=== PATIENT | male | born 1975 | race Caucasian/White ===

== ENCOUNTER → 2017-03-28 | Outpatient (CLI) | payer OTHER ==
--- NOTE | 2017-03-29 08:52 | EST ---
DATE OF SERVICE: 03/28/2017 AGE: 41Y SEX: M HT: 67 WT: 203 lbs. Protocol Kaleb: X Other: Stage: III Dur. of Exercise: 10 minutes *Heart Rate Blood Pressure *Rest: 77 Rest: 104/73 * *Max. Achieved: 154 Maximum BP: 136/61 85% PMHR: 154 100% PMHR: 181 *METS: 11.5 INDICATION OF THE STUDY: Chest discomfort. MEDICATIONS: STRESS DATA: Pretesting physical examination showed heart rate of 77, pressure is 104/73 mmHg. Baseline EKG showed sinus mechanism. The patient exercised on the treadmill according to Kaleb treadmill for a total 10 minutes and achieved 11.5 METs. Max heart rate was 154, which is about 85% of maximum predicted heart rate. Maximum blood pressure was 136/61 mmHg. Clinically, the patient did not have any symptoms of chest pain or discomfort during the testing or in the recovery time. The EKG did not show any significant ST or T wave abnormalities consistent with ischemia. CONCLUSION: 1. Excellent exercise capacity. 2. Normal EKG in response to exercise. 3. Normal exercise treadmill stress test for this gentleman.
== END | disposition home or self-care (01) ==
LOC: RADNMMAIN 11:01
PROVIDERS: ATTEND Internal Medicine
DX: R07.9 Chest pain, unspecified (principal); I10 Essential (primary) hypertension
CPT/HCPCS: 93017

== ENCOUNTER 2020-08-26 15:38 | Emergency (ER) | payer BC, OTHER ==
[2020-08-26 15:45] VITALS: BP 127/81; PULSE 82; TEMP 98.1
[2020-08-26 17:25] VITALS: RESP 16
[2020-08-26 17:37] LABS: Appearance,Urine Clear (Clear); Bilirubin,Urine Negative (Negative); Blood,Urine Trace (Negative); Color,Urine Light Yellow; Glucose,Urine (UA) Negative (Negative); Ketones,Urine Negative (Negative); Leukocyte Esterase,Urine Negative (Negative); Nitrite,Urine Negative (Negative); PH, Urine 6.5 (5.0-8.0); Protein,Urine Negative (Negative); RBC,Urine 1 /hpf (0-5); Specific Gravity,Urine 1.015 (1.001-1.035); Urobilinogen,Urine <2.0 mg/dL (<2.0); WBC,Urine 1 /hpf (0-5)
--- NOTE | 2020-08-26 18:17 | CT ---
EXAMINATION TYPE: CT abdomen pelvis wo con DATE OF EXAM: 08/26/2020 COMPARISON: None HISTORY: Rt side flank/back pain. CT DLP: 1302.4 mGycm Automated exposure control for dose reduction was used. Lung bases are clear. There is no pleural effusion. Heart size is normal. There is no pericardial eff usion. Liver spleen stomach pancreas gallbladder appear normal. Bile ducts are not dilated. There is no adre nal mass. There is 4 mm calculus lower pole left kidney. There is 2 mm calculus interpolar right kidn ey. There is no hydronephrosis. Ureters are not dilated. There is no retroperitoneal adenopathy. Appe ndix is posterior and appears normal. Bladder distends smoothly. There is no inguinal hernia. There i s no free fluid in the pelvis. There is no mesenteric edema. There is no ascites or free air. There is no bowel obstruction. Lumbar vertebra have normal alignment. Disc spaces are fairly normal. Posterior elements are intact. Bony pelvis is intact. There is some retained fecal material in the rectum that measures 6.5 cm. IMPRESSION: Nonobstructing small renal calculi. Normal appendix. Mild constipation.
--- NOTE | 2020-08-26 18:18 | CT ---
EXAMINATION TYPE: CT lumbar spine wo con DATE OF EXAM: 08/26/2020 COMPARISON: None HISTORY: Rt side flank/back pain. CT DLP: 1302.4 mGycm Automated exposure control for dose reduction was used. Images were obtained from the level of T12-S2 vertebra without contrast. Lumbar vertebra have normal alignment. Disc spaces are fairly normal. There is no compression fractur e. There is anterior osteophyte formation at T12-L1. There is mild anterior spurring at L2-3 and L3-4 . Posterior elements are intact. There is no compression fracture. I see no focal bone destruction. T here is no lumbar paraspinal mass. There is no evidence of lumbar spinal stenosis. Sacroiliac joints are intact. IMPRESSION: Mild degenerative hypertrophic changes. No fractures. No significant disc space narrowing. No spinal stenosis.
--- NOTE | 2020-08-26 18:19 | XR ---
EXAMINATION TYPE: XR chest 1V portable DATE OF EXAM: 08/26/2020 COMPARISON: NONE HISTORY: Short of breath TECHNIQUE: FINDINGS: Heart is normal. Lungs are clear of infiltrate. There is no heart failure. There are no hil ar masses. There is no sign of pleural effusion. IMPRESSION: No active cardiopulmonary disease.
[2020-08-26] MEDS ORDERED: LIDOCAINE 5% PATCH TOPICAL STA (18:44)
--- NOTE | 2020-08-26 18:47 | ED ---
SOB HPI - General Chief Complaint: Shortness of Breath Stated Complaint: Back Pain Time Seen by Provider: 08/26/20 15:45 Source: patient Mode of arrival: ambulatory Limitations: no limitations - History of Present Illness Initial Comments: Patient is a 45-year-old male presents emergency room with reported right-sided flank pain and some shortness of breath. The patient states that he dissipating and some heavy physical activity a couple weeks ago when he heard a pop in his right side. He states that he does have chronic back pain however the strenuous lifting made it worse. Patient reports that he has also relaxers and Motrin at home however does not like to take medications. Patient denies any saddle anesthesia. No bowel or bladder incontinence. No history of drug use. No fevers or chills. Denies any weakness in his lower extremities. She also reports to inability to take a deep breath. Denies any history of underlying lung issues. States that he is concerned that he may have Covid as he did have a positive exposure is requesting Covid testing. Denies cough. No chest pain. No other alleviating, precipitating modifying factors - Related Data Home Medications Medication Instructions Recorded Confirmed Ibuprofen [Motrin] 800 mg PO BID PRN 08/26/20 08/26/20 predniSONE See Taper PO DAILY 08/26/20 08/26/20 Previous Rx's Medication Instructions Recorded Lidocaine 5% Patch [Lidoderm] 1 patch TOPICAL DAILY #24 patch 08/26/20 Allergies Allergy/AdvReac Type Severity Reaction Status Date / Time No Known Allergies Allergy Verified 08/26/20 18:31 Review of Systems ROS Statement: Those systems with pertinent positive or pertinent negative responses have been documented in the HPI. ROS Other: All systems not noted in ROS Statement are negative. Past Medical History Past Medical History: No Reported History History of Any Multi-Drug Resistant Organisms: None Reported Past Surgical History: No Surgical Hx Reported Smoking Status: Smoker, current status unknown, Light tobacco smoker Past Drug Use History: None Reported General Exam Limitations: no limitations General appearance: alert, in no apparent distress Head exam: Present: atraumatic, normocephalic, normal inspection Eye exam: Present: normal appearance, PERRL, EOMI. Absent: scleral icterus, conjunctival injection, periorbital swelling ENT exam: Present: normal exam, mucous membranes moist Neck exam: Present: normal inspection. Absent: tenderness, meningismus, lymphadenopathy Respiratory exam: Present: normal lung sounds bilaterally. Absent: respiratory distress, wheezes, rales, rhonchi, stridor Cardiovascular Exam: Present: regular rate, normal rhythm, normal heart sounds. Absent: systolic murmur, diastolic murmur, rubs, gallop, clicks GI/Abdominal exam: Present: soft, normal bowel sounds. Absent: distended, tenderness, guarding, rebound, rigid Extremities exam: Present: normal inspection, full ROM, normal capillary refill. Absent: tenderness, pedal edema, joint swelling, calf tenderness Back exam: Present: normal inspection Neurological exam: Present: alert, oriented X3, CN II-XII intact Psychiatric exam: Present: normal affect, normal mood Skin exam: Present: warm, dry, intact, normal color. Absent: rash Course Vital Signs 08/26/20 08/26/20 15:42 17:24 Temperature 98.1 F Pulse Rate 82 Respiratory 18 16 Rate Blood Pressure 127/81 O2 Sat by Pulse 99 Oximetry Medical Decision Making - Medical Decision Making Upon arrival patient is placed into room 25. A thorough history and physical exam was performed. Patient is sent for a CT of his abdomen and pelvis as well as lumbar spine because of his reported right flank pain. Chest x-rays performed. CT does demonstrate nonobstructing small renal calculi. Urinalysis does show trace blood however no red blood cells. Chest x-ray demonstrates no acute intrathoracic process. Patient does not demonstrate any signs of respiratory distress. We did swab him for Covid and inform him that we will have his results within 36 hours. Patient is informed of the degenerative changes seen on his CT. I did discuss treatment options however patient refuses muscle relaxers, pain medications, anti-inflammatories. He does agree to a Lidoderm patch. Did provide him with one and the patient will be given a written prescription. He is to follow up with his primary care doctor. Quarantine until he has results of his Covid. Return to the emergency department for any new or worsening symptoms. Patient was discharged home in stable condition - Lab Data Lab Results 08/26/20 Range/Units 17:22 Urine Color Light Yellow Urine Appearance Clear (Clear) Urine pH 6.5 (5.0-8.0) Ur Specific [place] 1.015 (1.001-1.035) Urine Protein Negative (Negative) Urine Glucose (UA) Negative (Negative) Urine Ketones Negative (Negative) Urine Blood Trace H (Negative) Urine Nitrite Negative (Negative) Urine Bilirubin Negative (Negative) Urine Urobilinogen <2.0 (<2.0) mg/dL Ur Leukocyte Esterase Negative (Negative) Urine RBC 1 (0-5) /hpf Urine WBC 1 (0-5) /hpf Disposition Clinical Impression: Right flank pain, Nephrolithiasis, Lumbar radiculopathy Disposition: HOME SELF-CARE Condition: Stable Instructions (If sedation given, give patient instructions): Back Pain (ED) Additional Instructions: please follow-up with your primary care doctor. Return to the emergency room for any new or worsening symptoms Prescriptions: Lidocaine 5% Patch [Lidoderm] 1 patch TOPICAL DAILY #24 patch Is patient prescribed a controlled substance at d/c from ED?: No Referrals: Chris Thurman MD [Primary Care Provider] - 1-2 days Time of Disposition: 18:47
== END 2020-08-26 19:00 | disposition home or self-care (01) ==
LOC: EC 15:38
DX: N20.0 Calculus of kidney (principal); M54.16 Radiculopathy, lumbar region; R06.02 Shortness of breath; F17.200 Nicotine dependence, unspecified, uncomplicated; Z20.828 Contact with and (suspected) exposure to other viral communicable diseases
CPT/HCPCS: 71045; 72131; 74176; 81001; 99285

== ENCOUNTER → 2020-08-31 | Outpatient (CLI) | payer BC | END | disposition home or self-care (01) | LOC: LABWHC1 14:28 | PROVIDERS: ATTEND Emergency Medicine | DX: R05 Cough (principal) | CPT/HCPCS: U0003; C9803 ==

== ENCOUNTER 2020-09-19 19:09 | Emergency (ER) | payer BC ==
[2020-09-19 19:16] VITALS: BP 150/90; PULSE 92; RESP 18; TEMP 97.9
--- NOTE | 2020-09-19 19:38 | ED ---
General Adult HPI - General Chief complaint: Extremity Injury, Lower Stated complaint: fall, rt leg injury Source: patient, RN notes reviewed, old records reviewed Mode of arrival: ambulatory Limitations: no limitations - History of Present Illness Initial comments: 45-year-old male presents to the emergency department today with complaints of right ankle pain. Patient reports he tripped over 3 stairs and rolled it. Patient states he has no other injuries at this time no back pain or abdominal pain or head injury. He is that he sprained it. - Related Data Home Medications Medication Instructions Recorded Confirmed Ibuprofen [Motrin] 800 mg PO BID PRN 08/26/20 08/26/20 predniSONE See Taper PO DAILY 08/26/20 08/26/20 Previous Rx's Medication Instructions Recorded Lidocaine 5% Patch [Lidoderm] 1 patch TOPICAL DAILY #24 patch 08/26/20 Ibuprofen [Motrin] 800 mg PO Q8H #20 tab 09/19/20 Allergies Allergy/AdvReac Type Severity Reaction Status Date / Time No Known Allergies Allergy Verified 09/19/20 19:16 Review of Systems ROS Statement: Those systems with pertinent positive or pertinent negative responses have been documented in the HPI. ROS Other: All systems not noted in ROS Statement are negative. Past Medical History Past Medical History: No Reported History History of Any Multi-Drug Resistant Organisms: None Reported Past Surgical History: No Surgical Hx Reported Smoking Status: Current some day smoker, Light tobacco smoker Past Drug Use History: None Reported General Exam - General Exam Comments Initial Comments: 45-year-old male. Limitations: no limitations General appearance: alert, in no apparent distress Head exam: Present: atraumatic, normocephalic, normal inspection Eye exam: Present: normal appearance, PERRL, EOMI. Absent: scleral icterus, conjunctival injection, periorbital swelling ENT exam: Present: normal exam, mucous membranes moist Neck exam: Present: normal inspection. Absent: tenderness, meningismus, lymphadenopathy Respiratory exam: Present: normal lung sounds bilaterally. Absent: respiratory distress, wheezes, rales, rhonchi, stridor Cardiovascular Exam: Present: regular rate, normal rhythm, normal heart sounds. Absent: systolic murmur, diastolic murmur, rubs, gallop, clicks GI/Abdominal exam: Present: soft, normal bowel sounds. Absent: distended, tenderness, guarding, rebound, rigid Extremities exam: Present: normal inspection, full ROM, normal capillary refill. Absent: tenderness, pedal edema, joint swelling, calf tenderness Right Knee exam: Present: normal inspection, full ROM Lower Leg exam: Present: normal inspection, full ROM Ankle exam: Present: normal inspection, full ROM Foot/Toe exam: Present: full ROM, tenderness (over lateral malleolus), swelling. Absent: normal inspection Neurovascular tendon exam: Present: no vascular compromise Back exam: Present: normal inspection Course Vital Signs 09/19/20 19:14 Temperature 97.9 F Pulse Rate 92 Respiratory 18 Rate Blood Pressure 150/90 O2 Sat by Pulse 99 Oximetry Medical Decision Making - Medical Decision Making Patient is a pleasant 45-year-old male presents today with right ankle pain and sprain after falling down the stairs. Denies any other injury. Patient does have swelling over the lateral malleolus. At this time Patient has normal pulses normal sensation distally. Patient's x-rays reviewed and negative for acute process no signs of fracture. Patient was given an ankle stirrup splint and Eligio wrap. Advised to rest ice and elevate ankle as much as possible. Discussing him with crutches to keep weight off of it for the next week. Discussed return parameters and [place] follow-up if symptoms continue persist after a week of rest ice and elevate. - Radiology Data Radiology results: report reviewed Review ankle shows no fractures the Patient. Visualized osseous structures are nontender, alignment. Joint is preserved. Ankle more T's is congruent. No fracture dislocation of the right foot anatomic alignment. No acute osseous normality noted on foot or ankle x-ray. Disposition Clinical Impression: Right ankle sprain Disposition: HOME SELF-CARE Instructions (If sedation given, give patient instructions): Ankle Sprain (ED) Additional Instructions: Patient is advised to rest, ice, elevate ankle. Patient can wear the Eligio wrap for compression. Patient can follow-up with orthopedic if symptoms don't improve after the week of staying off of it is much as possible. Patient can ambulate with crutches. Patient should return to the emergency department if any alarming signs or symptoms occur. Prescriptions: Ibuprofen [Motrin] 800 mg PO Q8H #20 tab Is patient prescribed a controlled substance at d/c from ED?: No Referrals: Chris Thurman MD [Primary Care Provider] - 1-2 days Jeni Lyon DO [Doctor of Osteopathic Medicine] - 1-2 days Time of Disposition: 20:00
--- NOTE | 2020-09-19 19:58 | XR ---
Result: Clinical History: Pain status post fall. Comparison: None available. Technique: AP, lateral and oblique views of the right ankle. AP, lateral and oblique views of the right foot. Findings: The bone mineralization is age-appropriate. Right ankle: There is no acute fracture or dislocation. The visualized osseous structures are in marvin tomic alignment. The joint spaces are preserved. The talar dome is intact and the ankle mortise is c ongruent. Right foot: There is no acute fracture or dislocation. The visualized osseous structures are in moshe omic alignment. The joint spaces are preserved. IMPRESSION: No acute osseous abnormality.
== END 2020-09-19 20:30 | disposition home or self-care (01) ==
LOC: EC 19:09
DX: S93.401A Sprain of unspecified ligament of right ankle, initial encounter (principal); F17.210 Nicotine dependence, cigarettes, uncomplicated; Z79.52 Long term (current) use of systemic steroids; W10.9XXA Fall (on) (from) unspecified stairs and steps, initial encounter
CPT/HCPCS: 73610; 73630; 99284; 29515; L4350

== ENCOUNTER 2020-09-25 16:20 | Emergency (ER) | payer BC ==
[2020-09-25 16:30] VITALS: BP 122/76; PULSE 81; RESP 18; TEMP 98
--- NOTE | 2020-09-25 17:02 | ED ---
General Adult HPI - General Chief complaint: Extremity Injury, Lower Stated complaint: Revisit - R Ankle Injury Time Seen by Provider: 09/25/20 16:46 Source: patient, RN notes reviewed, old records reviewed Mode of arrival: ambulatory Limitations: no limitations - History of Present Illness Initial comments: 45-year-old male presenting for reevaluation of right ankle pain. Patient had had a fall while stepping out of his truck, injuring his right ankle which occurred on Sunday approximately one week ago. He had x-rays at that time which the patient reports were negative. He's had some persistent pain in the medial aspect of the ankle. He states initially the swelling was on the lateral aspect. Denies any new injury. Denies fever or chills. He states the swelling and pain has improved but he is unable to go to work with his ongoing symptoms. - Related Data Home Medications Medication Instructions Recorded Confirmed Ibuprofen [Motrin] 800 mg PO BID PRN 08/26/20 08/26/20 predniSONE See Taper PO DAILY 08/26/20 08/26/20 Previous Rx's Medication Instructions Recorded Lidocaine 5% Patch [Lidoderm] 1 patch TOPICAL DAILY #24 patch 08/26/20 Ibuprofen [Motrin] 800 mg PO Q8H #20 tab 09/19/20 Allergies Allergy/AdvReac Type Severity Reaction Status Date / Time No Known Allergies Allergy Verified 09/25/20 16:27 Review of Systems ROS Statement: Those systems with pertinent positive or pertinent negative responses have been documented in the HPI. ROS Other: All systems not noted in ROS Statement are negative. Past Medical History Past Medical History: No Reported History, Hyperlipidemia History of Any Multi-Drug Resistant Organisms: None Reported Past Surgical History: No Surgical Hx Reported Past Psychological History: No Psychological Hx Reported Smoking Status: Current some day smoker, Light tobacco smoker Past Alcohol Use History: None Reported Past Drug Use History: None Reported General Exam Limitations: no limitations General appearance: alert, in no apparent distress Head exam: Present: atraumatic, normocephalic Eye exam: Present: normal appearance, PERRL ENT exam: Present: normal exam Neck exam: Present: normal inspection. Absent: tenderness, meningismus Respiratory exam: Present: normal lung sounds bilaterally. Absent: respiratory distress, wheezes Cardiovascular Exam: Present: regular rate, normal rhythm GI/Abdominal exam: Present: soft. Absent: distended, tenderness Extremities exam: Present: normal capillary refill, other (Some tenderness on the medial malleolus, normal pulse exam, 2+ DP and PT pulses, normal Refill, minimal soft tissue swelling, no bony abnormality.). Absent: pedal edema Neurological exam: Present: alert, oriented X3, CN II-XII intact. Absent: motor sensory deficit Psychiatric exam: Present: normal affect, normal mood Skin exam: Present: warm, dry, intact. Absent: cyanosis, diaphoretic Course Vital Signs 09/25/20 16:27 Temperature 98 F Pulse Rate 81 Respiratory 18 Rate Blood Pressure 122/76 O2 Sat by Pulse 97 Oximetry Medical Decision Making - Medical Decision Making 45-year-old for reevaluation of fall, right ankle pain. X-ray is performed, again negative for fracture. Patient will follow with his primary care physician. Continue to rest, elevate, ice the extremity. Disposition Clinical Impression: Right ankle sprain Disposition: HOME SELF-CARE Condition: Good Instructions (If sedation given, give patient instructions): Ankle Sprain (ED) Is patient prescribed a controlled substance at d/c from ED?: No Referrals: Chris Thurman MD [Primary Care Provider] - 1-2 days Time of Disposition: 17:15
--- NOTE | 2020-09-25 17:05 | XR ---
EXAMINATION TYPE: XR ankle complete RT DATE OF EXAM: 09/25/2020 COMPARISON: NONE HISTORY: Pain TECHNIQUE: 3 views FINDINGS: Ankle mortise is anatomic. I see no fracture nor dislocation. Joint spaces are normal. IMPRESSION: Negative right ankle exam.
== END 2020-09-25 17:28 | disposition home or self-care (01) ==
LOC: EC 16:20
DX: S93.401A Sprain of unspecified ligament of right ankle, initial encounter (principal); F17.290 Nicotine dependence, other tobacco product, uncomplicated; X50.9XXA Other and unspecified overexertion or strenuous movements or postures, initial encounter
CPT/HCPCS: 99284

== ENCOUNTER 2022-02-28 14:29 | Inpatient (IN) | payer MEDICAID, OTHER ==
--- NOTE | 2022-02-28 16:42 | ED ---
General Adult HPI - General Chief complaint: Psychiatric Symptoms Stated complaint: Police Petition, Mental Health Time Seen by Provider: 02/28/22 14:45 Source: patient, police, RN notes reviewed, old records reviewed Mode of arrival: ambulatory Limitations: no limitations - History of Present Illness Initial comments: this is a 46-year-old male who presents emergency Department under police custody. Please call the scene because the patient's family stated he was suicidal and wanted to hang himself with a new's. Police stated that they did see the new's at the scene. Patient denies any suicide denies homicidal denies it was a new's denies he has a plan states she's not hearing any voices or seeing anything. Patient denies any physical complaints today. Patient denies drug use or alcohol use. - Related Data Home Medications Medication Instructions Recorded Confirmed Unable To Assess [Unable to Assess] 02/28/22 02/28/22 Allergies Allergy/AdvReac Type Severity Reaction Status Date / Time No Known Allergies Allergy Verified 02/28/22 14:39 Review of Systems ROS Statement: Those systems with pertinent positive or pertinent negative responses have been documented in the HPI. ROS Other: All systems not noted in ROS Statement are negative. Past Medical History Past Medical History: Hyperlipidemia History of Any Multi-Drug Resistant Organisms: None Reported Past Surgical History: No Surgical Hx Reported Past Psychological History: No Psychological Hx Reported Smoking Status: Current some day smoker, Light tobacco smoker Past Alcohol Use History: None Reported Past Drug Use History: None Reported General Exam - General Exam Comments Initial Comments: GENERAL: Patient is well-developed and well-nourished. Patient is nontoxic and well- hydrated and is in no acute distress. ENT: Neck is soft and supple. No significant lymphadenopathy is noted. Oropharynx is clear. Moist mucous membranes. Neck has full range of motion without eliciting any pain. EYES: The sclera were anicteric and conjunctiva were pink and moist. Extraocular movements were intact and pupils were equal round and reactive to light. Eyelids were unremarkable. PULMONARY: Unlabored respirations. Good breath sounds bilaterally. No audible rales rhonchi or wheezing was noted. CARDIOVASCULAR: There is a regular rate and rhythm without any murmurs gallops or rubs. ABDOMEN: Soft and nontender with normal bowel sounds. SKIN: Skin is clear with no lesions or rashes and otherwise unremarkable. NEUROLOGIC: Patient is alert and oriented x3. Cranial nerves II through XII are grossly intact. Motor and sensory are also intact. Normal speech, volume and content. Symmetrical smile. MUSCULOSKELETAL: Normal extremities with adequate strength and full range of motion. LYMPHATICS: No significant lymphadenopathy is noted PSYCHIATRIC: Patient denies suicidal homicidal ideations. Patient denies any previous psychiatric history. I told the patient that on the petition someone mentioned there was a new's patient states he never sought is a never indicated he was going to hang himself. Limitations: no limitations Course Vital Signs 02/28/22 14:35 Temperature 98.4 F Pulse Rate 125 H Respiratory 18 Rate Blood Pressure 139/82 O2 Sat by Pulse 95 Oximetry Medical Decision Making - Medical Decision Making patient got upset with the food here and then got upset that he was being held against his will and he climbed into the ceiling and fell through the ceiling in the next room. EPS evaluated the patient and determined that the patient needed to be admitted. Disposition Clinical Impression: Psychosis Disposition: ADMITTED IP TO THIS [facility] Referrals: None,Stated [Primary Care Provider] - 1-2 days Time of Disposition: 19:32
[2022-02-28] MEDS ORDERED: LORazepam 2 MG/ML INJ IM STA (19:14)
[2022-02-28] MEDS ORDERED: ZIPRASIDONE 20 MG VIAL IM STA (19:14)
[2022-02-28] MEDS ORDERED: ACETAMINOPHEN TAB 325 MG TAB PO PRN (22:35)
[2022-02-28] MEDS ORDERED: MAG HYDROX/AL HYDROX/SIMETH 30 ML CUP PO PRN (22:35)
[2022-02-28] MEDS ORDERED: MAGNESIUM HYDROXIDE 2,400 MG/10 ML CUP PO PRN (22:35)
[2022-02-28] MEDS ORDERED: OLANZapine 2.5 MG TAB PO PRN (22:38)
[2022-02-28] MEDS ORDERED: OLANZapine 10 MG VIAL IM PRN (22:38)
[2022-03-01] MEDS: NICOTINE 14MG/24HR PATCH TRANSDERM SCH (09:04)
--- NOTE | 2022-03-01 11:26 | P.HP ---
Psychiatric H&P - . H&P Date: 03/01/22 History & Physical: Allergies Allergy/AdvReac Type Severity Reaction Status Date / Time No Known Allergies Allergy Verified 02/28/22 14:39 Vital Signs Temp 97.7 F 02/28/22 23:28 Pulse 97 02/28/22 22:34 Resp 20 02/28/22 23:28 BP 119/75 02/28/22 23:28 Pulse Ox 95 02/28/22 14:35 Intake & Output 02/28/22 03/01/22 03/01/22 18:59 06:59 18:59 Weight 87.543 kg 84.113 kg Laboratory Last Values Coronavirus (PCR) Not Detected (Not Detectd) 02/28/22 21:02 03/01/22 11:10 IDENTIFYING DATA: Patient is a 46-year-old male who currently lives with his adi, her son in a house. He works in the [employer] business. He has one son. HPI: Patient presented to the hospital yesterday on petition by police claiming that patient was suicidal at home and apparently had a noose to hang himself. Patient apparently brought in by the family and also petitioned by them as well. Patient in the ER was apparently upset with the food and climbed into the ceiling through the ceiling tile and fell through the room beside it. Patient was admitted involuntarily to the mental health unit and was seen in group and agreeable to speak to ghost writer today. Patient appeared to be somewhat irritable, poor hygiene and grooming. He spoke about having significant "stress at work" and also was rambling and fairly tangential. He appeared to have a flight of ideas and had rapid speech/hyperverbal. He appeared to demonstrate fairly poor insight and judgment. He was complaining significantly about his home life and how his family was fairly intrusive before bringing him into the hospital. He claims that "my mom throws things in my face" and also spoke in a non chalant manner bout the noose which was tied and was his plans were for that. Patient was fairly guarded and evasive. He spoke about his sister being jealous of him. When asked about his urine drug screen, patient claims that "he'll never get it out of me and less on court ordered". He was very defensive about it and asked if ghost writer would give a sample as well. He states that his sleep has been poor and appetite as been fair. Patient denies any suicidal or homicidal ideations intent or plan. At this time patient denies any auditory or visual hallucinations. Patient claims that he smokes cigarettes and denies ever any other recreational drug use. PAST PSYCHIATRIC HISTORY: Patient states that he has no psychiatric history. Patient denies being on any psychiatric medications. Patient denies any previous psychiatric hospitalizations. Patient denies any psychiatric outpatient follow- up. Patient denies any history of suicide attempts in the past. PMH: Hyperlipidemia ALLERGIES: as per EMR CHEMICAL DEPENDENCY HISTORY: as per HPI FAMILY PSYCHIATRIC/SUBSTANCE USE HISTORY: denies SOCIAL HISTORY: Patient was born and raised in [facility]. He states that he has one son, lives with his fiance in a house, she works in the [employer] business. He states that he went to senior care once for narcotics. He claims that he has a degree in business. MENTAL STATUS EXAM: General Appearance: Patient appears to be well built, poor hygiene, stated age is alert, difficult to redirect, uncooperative and aggressive at times. Unkempt appearance. Behavior: Patient is seated without any agitated behavior. Began being irritable towards the end of the interview. Speech: Patient's speech is rapid and hyperverbal. Mood/Affect: Patient reports their mood is "fine", affect is incongruent Suicidality/Homicidality: Patient denies having any homicidal ideation intent or plan. Denies any suicidal ideations intent or plan Perceptions: Patient denies any visual hallucinations and denies any auditory hallucinations Though content/process: Patient has loose associations, tangential and rambling. Flight of ideas. Memory and concentration: AOX3, grossly intact for the purposes of this session. Can spell "WORLD" backwards Judgment and insight: poor STRENGTHS/WEAKNESSES: strength is that patient is resilient. Weakness is that patient has poor judgment and is impulsive INTELLECT: average IMPRESSIONS: Mood disorder unspecified, r/o secondary to substance use possible stimulant or methamphetamine or stimulant abuse Nicotine dependence PLAN: -Patient is admitted under involuntary status to MHU for stabilization of psychiatric symptoms and safety. Patient has [not] signed [adult voluntary form and] [medication consent] and is placed in patient's chart. [A second certification was completed and along with petition will be filed for court.] -Medications : Will start patient on paliperidone by mouth 3 mg daily at bedtime for psychosis/mood stabilization -Ativan [and Haldol] PRN for agitation/aggression [-Patient was counselled on substance abuse however patient refused to acknowled ge and substance use] -Patient was informed of the risks, benefits and side effects of the medication and patient refused to sign for meds. -Internal Medicine consult to perform medical evaluation and physical. -NRT - [nicotine patch] -SW on board for discharge planning. Encourage patient to participate in groups to work on coping skills. [Will await deferral and court date.] 03/01/22 13:20
[2022-03-01] MEDS ORDERED: traZODone HCL 50 MG TAB PO PRN (13:28)
--- NOTE | 2022-03-01 15:20 | P.HPMEDMHU ---
History of Present Illness Chief Complaint: Medical management Patient is a 46-year-old male with no significant past medical history the presents to the hospital secondary to mood disorder. Internal medicine was consulted for medical management. Patient was petitioned by police for possible suicidal ideation at home. Today during my examination he not complaining of any new symptomatology including chest pain, shortness of breath or palpitations. He does have poor hygiene looks deconditioned and internal medicine was consulted for medical management. Vital signs are reviewed patient is normotensive afebrile saturating above 90% on room air. During my encounter he denied use of any recreational drugs except for tobacco which he recently started. CBC BMP has not been ordered. Past Meckel history significant as above Past surgical history noncontributory Family medical history noncontributory patient does not know Social history only significant for tobacco dependence 10 point review of systems completed and negative except as above Past Medical History Past Medical History: Hyperlipidemia History of Any Multi-Drug Resistant Organisms: None Reported Past Surgical History: No Surgical Hx Reported Past Anesthesia/Blood Transfusion Reactions: No Reported Reaction Past Psychological History: No Psychological Hx Reported Smoking Status: Current some day smoker, Light tobacco smoker Past Alcohol Use History: None Reported Past Drug Use History: None Reported Medications and Allergies Home Medications Medication Instructions Recorded Confirmed Type Unable To Assess [Unable to Assess] 02/28/22 02/28/22 History Allergies Allergy/AdvReac Type Severity Reaction Status Date / Time No Known Allergies Allergy Verified 02/28/22 14:39 Physical Exam Vitals: Vital Signs Temp Pulse Resp BP 02/28/22 23:28 97.7 F 20 119/75 02/28/22 22:34 97.7 F 97 20 119/75 Intake and Output 03/01/22 03/01/22 03/01/22 06:59 14:59 22:59 Other: Weight 84.113 kg Gen. patient is poorly groomed and looks to have poor hygiene Respiratory normal air entry bilaterally, no wheezing appreciated Cardio normal S1/S2 heard Abdomen soft, nontender Extremity no pitting edema noted Cranial Nerve Examination - Cranial Nerves Cranial Nerve I- Olfactory: Intact Cranial Nerve II- Optic: Intact Cranial Nerve III- Oculomotor: Intact Cranial Nerve IV- Trochlear: Intact Cranial Nerve V- Trigeminal: Intact Cranial Nerve - Abducens: Intact Cranial Nerve VII- Facial: Intact Cranial Nerve VIII- Auditory: Intact Cranial Nerve IX- Glossopharyngeal: Intact Cranial Nerve X- Vagus: Intact Cranial Nerve XI- Accessory: Intact Cranial Nerve XII- Hypoglossal: Intact Thrombosis Risk Factor Assmnt - Choose All That Apply Any of the Below Risk Factors Present?: No Other Risk Factors: No Other congenital or acquired thrombophilia - If yes, enter type in comment: No Thrombosis Risk Factor Assessment Level: Very Low Risk Assessment and Plan Assessment: Assessment: #1 mood disorder #2 nicotine dependence Plan: -Continue management as per psychiatric unit -No a.m. labs have been completed vital signs are stable -Continue management as per primary team -If you have any questions please not hesitate to contact us. We will sign off please contact us with any questions at any time.
[2022-03-01] MEDS: PALIPERIDONE 3 MG TAB.ER.24 PO SCH (21:25)
[2022-03-02 06:44] VITALS: RESP 16
[2022-03-02] MEDS: NICOTINE 14MG/24HR PATCH TRANSDERM SCH (08:20)
--- NOTE | 2022-03-02 10:40 | P.PN ---
Progress Note - Text Progress Note Date: 03/02/22 Interval History: Patient was seen lying in his bed this morning. Patient was approached by blurb writer today for interview and patient agreed. He was mildly more directable today and less hostile with blurb writer initially. Patient states that he was feeling fairly agitated yesterday and irritable and also mentioned having mood swings however today he states that he is doing mildly better. He continues to believe that he does not need to be on the inpatient unit and continues to deny using drugs. He continues to be fairly resistant to any medications and refused the by mouth paliperidone last night. He states that he was trying to read over the list of side effects from the medications and asked blurb writer about them and was also fairly argumentative about the medication. We spoke more about the court process and involuntary process as well which she is agreeable to. He claims that he is eating fairly, slept well last night. He is not responding to internal stimuli today. At this time patient denies any suicidal or homical ideations, intent or plan. Patient denies any auditory, visual hallucinations and denies any paranoia or delusions. Mental Status Exam: General Appearance: Patient appears to be well built, fair hygiene, stated age is alert, difficult to redirect, uncooperative. Unkempt appearance. Behavior: Patient is seated without any agitated behavior. Began being irritable towards the end of the interview Speech: Patient's speech is rapid and hyperverbal Mood/Affect: Patient reports their mood is "ok", affect is incongruent Suicidality/Homicidality: Patient denies having any homicidal ideation intent or plan. Denies any suicidal ideations intent or plan Perceptions: Patient denies any visual hallucinations and denies any auditory hallucinations Though content/process: Patient has loose associations, tangential and rambling. Flight of ideas. Memory and concentration: AOX3, grossly intact for the purposes of this session Judgment and insight: poor IMPRESSIONS: Mood disorder unspecified, r/o secondary to substance use possible stimulant or methamphetamine or stimulant abuse Nicotine dependence Plan: -Patient continues to meet criteria for inpatient psychiatric admission for symptom stabilization and safety. Patient has not signed adult voluntary form and medication consent and was placed in patient's chart. -Medications: Invega 3 mg qhs for mood stabilization/psychosis. he is refusing po meds at this time. -When necessary Ativan and Haldol for agitation/aggression -NRT - nicotine patch -SW on board for discharge planning. Encouraged the patient to participate in milieu. Currently awaiting deferral with regulatory attorney and court date.
[2022-03-02] MEDS: PALIPERIDONE 3 MG TAB.ER.24 PO SCH (21:13)
[2022-03-03] MEDS: NICOTINE 14MG/24HR PATCH TRANSDERM SCH (09:10)
--- NOTE | 2022-03-03 09:31 | P.PN ---
Progress Note - Text Progress Note Date: 03/03/22 Interval History: Patient was seen lying in his bed this morning. Patient was awoken by documentation writer today and agreeable to speak. He appeared to have improvement in his irritability and agitation today. He states that he spoke with his yesterday who claims that he should be taking the medications and he took the paliperidone last night. He states that "I didn't feel anything" and denied any complaints or side effects from it. He states that he slept a bit better last night. He is not complaining of any overnight issues. He states that he is going to some groups. He asked about potential discharge in the court process once again. He claims that he will probably be signing the deferral so that he can be discharged soon. He is denying any anxiety or depression today. He is not responding to internal stimuli today. He is not endorsing any paranoia today. At this time patient denies any suicidal or homical ideations, intent or plan. Patient denies any auditory, visual hallucinations. Mental Status Exam: General Appearance: Patient appears to be well built, fair hygiene, stated age is alert, difficult to redirect, more cooperative today. Improving hygiene and grooming. Behavior: Patient is seated without any agitated behavior. Less irritable today. Speech: Patient's speech is rapid and hyperverbal, improved. Mood/Affect: Patient reports their mood is "fine", affect is congruent Suicidality/Homicidality: Patient denies having any homicidal ideation intent or plan. Denies any suicidal ideations intent or plan Perceptions: Patient denies any visual hallucinations and denies any auditory hallucinations Though content/process: Patient is more goal oriented. Continues to be tangential at times. Logical. Memory and concentration: AOX3, grossly intact for the purposes of this session Judgment and insight: poor, improving moderately. IMPRESSIONS: Mood disorder unspecified, r/o secondary to substance use possible stimulant or methamphetamine or stimulant abuse Nicotine dependence Plan: -Patient continues to meet criteria for inpatient psychiatric admission for symptom stabilization and safety. Patient has not signed adult voluntary form and medication consent and was placed in patient's chart. -Medications: Continue with Invega 3 mg qhs for mood stabilization/psychosis -When necessary Ativan and Haldol for agitation/aggression -NRT - nicotine patch -SW on board for discharge planning. Encouraged the patient to participate in milieu. Currently awaiting deferral with assistant city attorney and court date. once patient defers then he can be discharged shortly afterwards back home.
[2022-03-03] MEDS: PALIPERIDONE 3 MG TAB.ER.24 PO SCH (20:17)
[2022-03-04] MEDS: NICOTINE 14MG/24HR PATCH TRANSDERM SCH (07:47)
--- NOTE | 2022-03-04 12:04 | P.PN ---
Progress Note - Text Progress Note Date: 03/04/22 Interval history: Patient was laying down and reading a book this morning. He is directable and agreeable to speak with communications writer. 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 He reports he is taking two naps during the day currently; each nap is 2-3 hours during the day. At this time patient denies any suicidal or homicidal ideations intent or plan. Denies any auditory or visual hallucinations. Patient denies any side effects from the medications and has been compliant with meds. Mental status exam: General Appearance: Patient appears to be stated age is alert, directable, and cooperative. Behavior: No agitated behavior. Patient is calm and directable. Speech: Patient's speech is fluent and nonpressured. Mood/Affect: Mood is improving mildly, affect is congruent and constricted. Suicidality/Homicidality: Patient denies having any suicidal or homicidal ideation intent or plan. Perceptions: Patient denies any auditory or visual hallucinations. Though content/process: There is no evidence of any delusional thought content and thought process is linear and goal-directed. Memory and concentration: AOX3, grossly intact for the purposes of this session Judgment and insight: Improving mildly Assessment/Plan: Continue with current diagnosis. We reviewed his medications together. Patient will be maintained on current psychotropic medication regimen. We discussed sleep hygiene, including staying out of bed the entire day and only laying in bed at bedtime. He was encouraged to try the Trazodone 50 mg QHS PRN for insomnia tonight and he agrees. Patient continues to meet criteria for inpatient psychiatric admission for symptom stabilization and safety. Monitor for medication compliance and for any psychotropic medication side effects. Will continue to monitor ongoing response to treatment. Encouraged participation in milieu.
[2022-03-04] MEDS: PALIPERIDONE 3 MG TAB.ER.24 PO SCH (19:40)
[2022-03-05] MEDS: NICOTINE 14MG/24HR PATCH TRANSDERM SCH (07:56)
--- NOTE | 2022-03-05 14:57 | P.PN ---
Progress Note - Text Progress Note Date: 03/05/22 Interval history: He is directable and agreeable to speak with radio script writer. He attended some groups, and enjoyed them. He reports disrupted sleep again last night; he did not take the Trazodone, it was prescribed as needed and he didn't know he had to ask for it. He plans to try it tonight. He is working on sleep hygiene and he reduced his time in bed today. At this time patient denies any suicidal or homicidal ideations intent or plan. Denies any auditory or visual hallucinations. Patient denies any side effects from the medications and has been compliant with meds. Mental status exam: General Appearance: Patient appears to be stated age is alert, directable, and cooperative. Behavior: No agitated behavior. Patient is calm and directable. Speech: Patient's speech is fluent and nonpressured. Mood/Affect: Mood is "good", affect is congruent. Suicidality/Homicidality: Patient denies having any suicidal or homicidal ideation intent or plan. Perceptions: Patient denies any auditory or visual hallucinations. Though content/process: There is no evidence of any delusional thought content and thought process is linear and goal-directed. Memory and concentration: AOX3, grossly intact for the purposes of this session Judgment and insight: Improving mildly Assessment/Plan: Continue with current diagnosis. We reviewed his medications together. Trazodone 50 mg QHS PRN for sleep has been changed to QHS scheduled and he will try it tonight. Continue to work on sleep hygiene. Patient will be maintained on current psychotropic medication regimen. Patient continues to meet criteria for inpatient psychiatric admission for symptom stabilization and safety. Monitor for medication compliance and for any psychotropic medication side effects. Will continue to monitor ongoing response to treatment. Encouraged participation in milieu.
[2022-03-05] MEDS: PALIPERIDONE 3 MG TAB.ER.24 PO SCH (20:55)
[2022-03-05] MEDS ORDERED: traZODone HCL 50 MG TAB PO SCH (21:00)
[2022-03-06 06:47] VITALS: BP 100/55; PULSE 62; TEMP 98.3
[2022-03-06] MEDS: NICOTINE 14MG/24HR PATCH TRANSDERM SCH (08:44)
--- NOTE | 2022-03-06 09:17 | P.DS ---
Providers Date of admission: 02/28/22 22:06 Expected date of discharge: 03/06/22 Attending physician: Juan Dobbins MD Consults: 02/28/22 22:35 Consult Physician Routine Consulting Provider: Scott Mathis Consult Reason/Comments: H&P and medical Do you want consulting provider notified?: Yes Primary care physician: Stated None - Discharge Diagnosis(es) (1) Mood disorder Current Visit: Yes Status: Acute Priority: High (2) Nicotine dependence Current Visit: Yes Status: Acute Priority: Medium Hospital Course: Admission HPI: Admission note was completed by appeals writer "Patient is a 46-year-old male who currently lives with his adi, her son in a house. He works in the [employer] business. He has one son. Patient presented to the hospital yesterday on petition by police claiming that patient was suicidal at home and apparently had a noose to hang himself. Patient apparently brought in by the family and also petitioned by them as well. Patient in the ER was apparently upset with the food and climbed into the ceiling through the ceiling tile and fell through the room beside it. Patient was admitted involuntarily to the mental health unit and was seen in group and agreeable to speak to appeals writer today. Patient appeared to be somewhat irritable, poor hygiene and grooming. He spoke about having significant "stress at work" and also was rambling and fairly tangential. He appeared to have a flight of ideas and had rapid speech/hyperverbal. He appeared to demonstrate fairly poor insight and judgment. He was complaining significantly about his home life and how his family was fairly intrusive before bringing him into the hospital. He claims that "my mom throws things in my face" and also spoke in a non chalant manner bout the noose which was tied and was his plans were for that. Patient was fairly guarded and evasive. He spoke about his sister being jealous of him. When asked about his urine drug screen, patient claims that "he'll never get it out of me and less on court ordered". He was very defensive about it and asked if appeals writer would give a sample as well. He states that his sleep has been poor and appetite as been fair. Patient denies any suicidal or homicidal ideations intent or plan. At this time patient denies any auditory or visual hallucinations. Patient claims that he smokes cigarettes and denies ever any other recreational drug use." Hospital course: Upon admission to the unit patient was admitted involuntarily on a petition and certificate and a second certificate was completed and faxed with the courts. Patient ended up signing a deferral with the immigration attorney and agreeing to treatment on day of discharge. Patient got along well with other patients on the unit and followed unit protocol. Patient was initially noncompliant with medications however with time and encouragement became more compliant with the medications and denied any side effects throughout hospital course. Patient was started on paliperidone by mouth 3 mg daily at bedtime for mood stabilization/psychosis, trazodone 100 mg daily at bedtime when necessary for insomnia. Patient spoke of his stressors and engaged in therapy both group and individual. Patient was also seen by medical team for history and physical exam. Throughout the course of the hospitalization patient gradually improved with regards to mood, lability, anxiety, sleep and returned back to their baseline level of functioning. On the day of discharge patient denied any suicidal or homicidal ideations intent or plan denied any auditory or visual hallucinations. Patient endorsed wanting to live for his health and family. The patient denied any access to guns or weapons. Patient denied any paranoia and did not endorse any delusions. Patient does have a significant history of substance abuse and was counseled on abstaining from all substances including alcohol and marijuana. Patient was offered however declined inpatient substance-abuse rehab. Patient continues to minimize his drug use and claims that he will not give a urine drug sample. Patient was also counseled on the medications and need for regular compliance and was encouraged to follow-up with their outpatient appointment for mental health and also for primary care. Prior to discharge a family meeting will be arranged by social worker palliative care to answer any questions and ensure safety upon discharge. Mental status exam: General Appearance: Patient appears to be well built,stated age is alert, pleasant, and cooperative. Patient is in no acute distress and has improved hygiene and grooming Behavior: Patient is calmly seated without any agitated behavior. Speech: Patient's speech is fluent and nonpressured. Mood/Affect: Patient reports their mood is "better", affect is congruent and euthymic. Suicidality/Homicidality: Patient denies having any suicidal or homicidal ideation intent or plan. Perceptions: Patient denies any auditory or visual hallucinations. Though content/process: There is no evidence of any delusional thought content and thought process is linear and goal-directed. more future oriented Memory and concentration: AOX3, grossly intact for the purposes of this session. Can spell "WORLD" backwards correctly. Judgment and insight: improved with guarded prognosis Impression: Mood disorder unspecified, likely secondary to substance use possible methamphetamine or stimulant abuse Nicotine dependence Plan: -Continue with discharge today as patient has improved and stabilized psychiatrically and is not currently an imminent threat to himself and/or o thers. Patient will remain at chronically elevated risk for harm to self and/or others due to his impulsivity and substance abuse. -Continue medications: Paliperidone by mouth 3 mg daily at bedtime for mood stabilization/psychosis, trazodone 100 mg daily at bedtime when necessary for insomnia. -Patient was counseled on the need for medication compliance and appropriate follow-up at mental health and also primary care for medical issues. Patient verbalized understanding and agreed. -Social work to arrange for and conduct family meeting to ensure safety upon discharge and answer any questions/concerns. Social work also to arrange for patients follow up appointments for psychiatric care along with follow up with primary care provider. -Patient counseled on abstaining from recreational drugs and marijuana and alcohol. Was informed/educated on the adverse effects on their physical and mental health. Patient verbally agreed and understood. Patient was offered substance abuse treatment however declined at this time. -Patient was instructed to return to the hospital or seek immediate medical care if their psychiatric or medical symptoms do worsen or reoccur. Allergies Allergy/AdvReac Type Severity Reaction Status Date / Time No Known Allergies Allergy Verified 02/28/22 14:39 Laboratory Results Coronavirus (PCR) Not Detected (Not Detectd) 02/28/22 21:02 Vital Signs Temp 98.3 F 03/06/22 06:46 Pulse 62 03/06/22 06:46 Resp 16 03/06/22 06:46 BP 100/55 03/06/22 06:46 Pulse Ox 96 03/04/22 06:48 Patient Condition at Discharge: Stable Plan - Discharge Summary Discharge Rx Participant: No New Discharge Prescriptions: New Nicotine 14Mg/24Hr Patch [Habitrol] 1 patch TRANSDERM DAILY 14 Days patch Paliperidone [Invega] 3 mg PO HS 30 Days traZODone HCL 100 mg PO HS PRN 30 Days tablet PRN Reason: Insomnia Discharge Medication List Nicotine 14Mg/24Hr Patch [Habitrol] 1 patch TRANSDERM DAILY 14 Days patch 03/06/22 [Rx] Paliperidone [Invega] 3 mg PO HS 30 Days 03/06/22 [Rx] traZODone HCL 100 mg PO HS PRN 30 Days tablet 03/06/22 [Rx] Follow up Appointment(s)/Referral(s): [facility] [NON-STAFF] - 1 Week Patient Instructions/Handouts: How to Stop Smoking (DC), Depression (DC) Activity/Diet/Wound Care/Special Instructions: Activity and diet as tolerated. Avoid the use of street drugs and alcohol. Take all medications as prescribed. When you are in need of refills on your medications please contact your medical provider and/or outpatient psychiatrist to have this done. Please go to scheduled outpatient appointment for aftercare treatment. If symptoms return or become worse, call the crisis line at and/or go to the nearest emergency room for evaluation Discharge Disposition: HOME SELF-CARE
== END 2022-03-06 14:46 | disposition home or self-care (01) | DRG 885 ==
LOC: EC 14:29 → 3MHU 22:06
PROVIDERS: ADMIT Psychiatry & Neurology Psychiatry; ATTEND Psychiatry & Neurology Psychiatry
DX: F39 Unspecified mood [affective] disorder (principal); E78.5 Hyperlipidemia, unspecified; F17.200 Nicotine dependence, unspecified, uncomplicated; G47.00 Insomnia, unspecified; Z79.899 Other long term (current) drug therapy; Z20.822 Contact with and (suspected) exposure to COVID-19
CPT/HCPCS: 82075; 87635; 99285

== ENCOUNTER → 2022-10-07 | Outpatient (CLI) | payer OTHER ==
[2022-10-07 17:38] LABS: ALT 43 U/L (10-49); AST 25 U/L (14-35); African American GFR (CKD) 122.4 (60.0-200.0); Albumin 4.6 g/dL (3.8-4.9); Albumin/Globulin Ratio 2.04 (1.60-3.17); Alkaline Phosphatase 68 U/L (41-126); BUN/Creat Ratio 15.07 Ratio (12.00-20.00); Blood Urea Nitrogen 12.7 mg/dL (9.0-27.0); Calcium 9.7 mg/dL (8.7-10.3); Carbon Dioxide 24.1 mmol/L (20.0-27.5); Chloride 101 mmol/L (96-109); Chol/HDL Ratio 5.14 Ratio; Globulin 2.3 g/dL (1.6-3.3); Glucose 95 mg/dL (70-110); LDL Cholesterol,Calculated 140.8 mg/dL (0.0-131.0); Non-African American GFR(CKD) 105.6 (60.0-200.0); Potassium 4.8 mmol/L (3.5-5.5); Sodium 138 mmol/L (135-145); Total Protein 6.9 g/dL (6.2-8.2)
[2022-10-08 06:32] LABS: Basophils % (A) 1.3 %; Eosinophils # (A) 0.65 X 10*3/uL (0.04-0.35); Eosinophils % (A) 8.6 %; HCT 49.6 % (39.6-50.0); HGB 15.8 g/dL (13.0-17.0); Immature Grans, Automated 0.1 %; Lymphocytes # (A) 3.31 X 10*3/uL (0.90-5.00); MCH 31.5 pg (27.0-32.0); MCHC 31.9 g/dL (32.0-37.0); MCV 98.8 fL (80.0-97.0); Mean Platelet Volume 10.6 fL (9.5-12.2); Monocytes # (A) 0.67 X 10*3/uL (0.20-1.00); Monocytes % (A) 8.9 %; NRBC Per 100 WBC 0.3 /100 WBCS (0.0-0.0); Neutrophils # (A) 2.79 X 10*3/uL (1.80-7.70); Neutrophils % (A) 37.1 %; Platelet Count 420 X 10*3/uL (140-440); RBC 5.02 X 10*6/uL (4.40-5.60); RDW 13.2 % (11.5-14.5); WBC 7.53 X 10*3/uL (4.50-10.00)
== END | disposition home or self-care (01) ==
LOC: LABWHC1 09:26
PROVIDERS: ATTEND Registered Nurse
DX: F32.2 Major depressive disorder, single episode, severe without psychotic features (principal); Z79.899 Other long term (current) drug therapy
CPT/HCPCS: 36415; 80053; 80061; 80175; 82306; 83036; 84439; 84443; 85025

== ENCOUNTER → 2022-11-16 | Outpatient (CLI) | payer OTHER ==
--- NOTE | 2022-11-16 10:45 | P.SLEEP ---
History of Present Illness DATE: 11/16/2022 CONSULTATION/NEW PATIENT EVALUATION HISTORY OF PRESENT ILLNESS/SLEEP-WAKE EVALUATION: 47-year-old gentleman had been evaluated in the sleep center for possible obstructive sleep apnea hypopnea syndrome. SLEEP SCHEDULE: Usually sleep schedule from 10 PM to 4 AM on weekdays and from 10 PM to 7 AM on weekend. FALLING ASLEEP: Usually no problems with falling asleep. DURING SLEEP: Patient has loud snoring and witnessed episodes of stop breathing during the sleep. Positive history of leg twitching, episodes of gasping for air, sweating, dry mouth. No history of hypnogogical hallucinations, sleep paralysis, or cataplexy. DURING THE DAY/WAKE STATE: In the morning patient wake up tired, has difficulties to place attention, falling asleep during the day. Positive history of problems with concentration, irritability and depression. [place] sleepiness scale is significantly increased to 15. On days off patient takes up to 5 naps a day. PAST MEDICAL HISTORY: Depression, anxiety, posttraumatic stress disorder. PAST SURGICAL HISTORY: None. MEDICATIONS: Lamictal 200 mg once a day, Invega got 1.5 mg once a day. SOCIAL HISTORY: Patient smokes 1 pack per day for 7 years, alcohol consumption occasional. FAMILY HISTORY: Mental illness. REVIEW OF SYSTEMS: Significant excessive daytime sleepiness, gasping for air during the sleep. No fevers. No double vision. No recent chest pain. No shortness of breath. No abdominal pain. No bleeding episodes. No blood in urine. No seizure episodes. PHYSICAL EXAMINATION: GENERAL: A pleasant patient without any distress. VITAL SIGNS: BP 132/88, HR 86, RR 18, weight 208.4 pounds, height 5 foot 6.5 inches, body mass index 33.0. HEENT: PERRLA, EOMI. Evaluation of oropharynx showed tongue protrudes midline, low position of soft palate Mallampati 4. NECK: Supple. No JVD. Thyroid is not palpable. 17.75 inches in circumference. LUNGS: Clear to percussion and to auscultation. Good air exchange. No wheezing or rhonchi. HEART: S1, S2 regular. No murmurs, gallops or rubs. ABDOMEN: Soft and nontender. Bowel sounds are present. No organomegaly appreciated. EXTREMITIES: No clubbing or cyanosis. ANALYTICAL ENGINEER: Awake, alert, and oriented x3. Cranial nerves 2 to 7 intact. There is no fasciculation or atrophy noted. No focal deficits observed. ASSESSMENT: 1. Loud snoring, witnessed sleep apneas, extremely low position of soft palate Mallampati 4, wide neck 17.75 inches, significant sleepiness. Obstructive sleep apnea hypopnea syndrome. 2. Mild obesity body mass index 33.0. 3. History of PTSD. 4. History of depression. 5 history of anxiety. 6 . Significant sleepiness with [place] Sleepiness Scale 15 dictated necessity to include hypersomnia in differential diagnosis if sleep study will be negative for obstructive sleep apnea hypopnea syndrome. 7. Significant amount of twitching of legs during the night, possibly periodic limb movements. PLAN: 1. Polysomnography for evaluation of patient's breathing during sleep and to check for possible periodic limb movements. 2. CPAP/BiPAP titration if sleep study confirms obstructive sleep apnea-hypopn ea syndrome. 3. Preferable position during sleep on the side. 4. No driving if patient feels any sleepiness. Patient is aware of civil and criminal liability for unsafe driving. 5. Sleep hygiene with regular sleep time for at least 7.5-8 hours. 6. Watching weight. Thank you very much for referring this patient for consultation. Sincerely, Ben Holloway MD, PhD, FAASM. Diplomat of [place], Sleep Medicine Board by [employer] Registered Nurse [facility] [place] Past Medical History Past Medical History: Hyperlipidemia History of Any Multi-Drug Resistant Organisms: None Reported Past Surgical History: No Surgical Hx Reported Past Anesthesia/Blood Transfusion Reactions: No Reported Reaction Past Psychological History: No Psychological Hx Reported Smoking Status: Current some day smoker, Light tobacco smoker Past Alcohol Use History: None Reported Past Drug Use History: None Reported Medications and Allergies Home Medications Medication Instructions Recorded Confirmed Type Nicotine 14Mg/24Hr Patch [Habitrol] 1 patch TRANSDERM DAILY 14 Days 03/06/22 Rx patch Paliperidone [Invega] 3 mg PO HS 30 Days 03/06/22 Rx traZODone HCL 100 mg PO HS PRN 30 Days tablet 03/06/22 Rx Allergies Allergy/AdvReac Type Severity Reaction Status Date / Time No Known Allergies Allergy Verified 02/28/22 14:39 Sleep Note - Sleep Note Sleep Note: Temperature: Pulse Rate: Respiratory Rate: Blood Pressure: SpO2: Height: Weight: BMI: Neck Circumference:
== END ==
LOC: SLEEP 10:19
PROVIDERS: ATTEND Internal Medicine
DX: G47.33 Obstructive sleep apnea (adult) (pediatric) (principal); E66.9 Obesity, unspecified; Z68.33 Body mass index [BMI] 33.0-33.9, adult; Z99.89 Dependence on other enabling machines and devices; F32.A Depression, unspecified; F41.9 Anxiety disorder, unspecified; F17.210 Nicotine dependence, cigarettes, uncomplicated; E78.5 Hyperlipidemia, unspecified
CPT/HCPCS: 99211